=== PATIENT | female | born 1990 | race Two or more races ===

== ENCOUNTER 2017-05-04 20:40 | Emergency (ER) | payer OTHER ==
[~2017-05-04] VITALS: Ht 172.7 cm; Wt 79.4 kg
[2017-05-04 20:45] VITALS: BP 130/85
--- NOTE | 2017-05-04 20:58 | Emergency Room Report ---
History of Present Illness General Chief Complaint: Upper Extremity Injury Source: Patient Present Illness HPI Patient is a 26-year-old female presented after increased left elbow pain. Patient had injury while trying to do a pushup. Patient felt that her elbow popped out of joint. She denies prior history of similar injuries. She is right-hand dominant. The patient reports having prior history of depression. She denies other locations of pain. Allergies: Coded Allergies: No Known Allergies (Unverified , 05/04/17) Patient History Past Medical History: see triage record Last Menstrual Period: 04/06/17 Now: No : 0 Para: 0 Reviewed Nursing Documentation: PMH: Agreed, PSxH: Agreed Nursing Documentation-PMH Past Medical History: No History, Except For History Of Psychiatric Problem: Yes - depression Review of Systems All Other Systems: negative except mentioned in HPI Physical Exam Vital Signs Date Time Temp Pulse Resp B/P (MAP) Pulse Ox O2 Delivery O2 Flow Rate FiO2 05/04/17 20:29 98.8 101 16 130/85 96 Room Air 98.8 Sp02 EP Interpretation: reviewed, normal General Appearance: normal inspection, well appearing, no apparent distress, alert, GCS 15 Head: atraumatic ENT: normal ENT inspection, hearing grossly normal, normal voice Neck: normal inspection, full range of motion, supple, no bony tend Respiratory: normal inspection, lungs clear, normal breath sounds, no respiratory distress, no retraction, no wheezing Cardiovascular #1: regular rate, rhythm, no edema Gastrointestinal: normal inspection, normal bowel sounds, non tender, soft, no guarding, no hernia Genitourinary: no CVA tenderness Musculoskeletal: normal inspection, back normal, other - deformity of left elbow Neurologic: normal inspection, alert, oriented x3, responsive, warp hanger III-XII nml as tested, motor strength/tone normal, speech normal Psychiatric: normal inspection, judgement/insight normal, mood/affect normal Skin: normal inspection, normal color, no rash Procedures Procedural Sedation Consent: Emergent Airway Assessment (Malampati): I Heart: normal Lungs: normal Abdomen: normal Extremities: abnormal - left elbow dislocation Procedures/Plans: Closed Reduction Plan for Moderate Sedation: Propofol ASA Score: I Procedure Narrative The patient was given propofol in 20 mg aliquots until she was adequately sedated. elbow was reduced with axial traction Start Time: 22:24 End Time: 22:36 Communication: No Apparent Limitation Mental Status: Awake Respiration: Unlabored Skin Condition: WNL Abdomen: WNL Nausea: NO Vomiting: NO Medical Decision Making Diagnostic Impression: Primary Impression: Dislocation, elbow ER Course Patient presented for left elbow pain. Differential diagnosis included was not limited to fracture, dislocation, sprain, vascular insufficiency among others. The patient appears to have what appears to be a elbow dislocation.the patient was given IV medications for sedation. Elbow was reduced.Procedure x-ray showed adequate elbow reduction. The patient was placed in a posterior splint and put in a sling. The patient was neurovascularly intact after reduction. The patient is advised to follow up with primary care doctor in 1-2 day for orthopedic primary care referral. Patient is advised to return if any worsening condition or if any changes in status that are concerning. This report is dictated with [employer] department assistant software which may occasionally lead to discrepancies related to use of this software. Last Vital Signs Date Time Temp Pulse Resp B/P (MAP) Pulse Ox O2 Delivery O2 Flow Rate FiO2 05/04/17 20:29 98.8 101 16 130/85 96 Room Air 98.8 Status: improved Disposition: HOME, SELF-CARE Condition: Stable Scripts Ibuprofen* (MOTRIN*) 600 Mg Tablet 600 MG ORAL Q8H Y for For Pain, #30 TAB 0 Refills Prov: Mart James 05/04/17 Hydrocodone Bit/Acetaminophen 5-325* (NORCO 5-325*) 1 Each Tablet 1 TAB ORAL Q6H Y for For Pain, #20 TAB 0 Refills Prov: Mart James 05/04/17 Mart James May 04, 2017 20:58
[2017-05-04] MEDS ORDERED: Ketorolac 30mg Inj IV ONE (21:00)
[2017-05-04] MEDS ORDERED: Propofol 200mg/20ml IV ONE (21:30)
[2017-05-04] MEDS ORDERED: Morphine Sulfate 4mg/ml Inj IVP ONE (22:15)
[2017-05-04] MEDS ORDERED: IBUPROFEN600 MG ORAL (22:37)
[2017-05-04] MEDS ORDERED: NORCO 5-325 TA1 EACH ORAL (22:37)
[2017-05-05] VITALS: BP 128/95
[2017-05-05 00:23] VITALS: BP 113/75
--- NOTE | 2017-05-05 11:17 | Diagnostic Imaging Report ---
Indication: Pain Technique: 2 views of the left elbow Comparison: none Findings: There is posterior dislocation of the elbow, with about one bone width dislocation and override. There is an associated joint effusion. No fracture demonstrated Impression: Positive for left elbow dislocation
--- NOTE | 2017-05-05 11:26 | Diagnostic Imaging Report ---
Indication: Pain, status post reduction of left elbow dislocation Technique: 3 views of the left elbow Comparison: 1 1/2 hours earlier Findings: During reduction of previously demonstrated left elbow dislocation, now satisfactory anatomic alignment. Small ossific density at the lateral aspect of the elbow joint seen on the AP and oblique views may represent a small fracture fragment. The anterior fat-pad is elevated consistent with a joint effusion. Impression: Evidence of successful reduction of previously demonstrated left elbow dislocation Small osseous fragment at the lateral aspect of the joint probably represents a small avulsion fracture
== END 2017-05-05 00:15 | disposition home or self-care (01) ==
LOC: EDBD 20:40 → EMR 23:00
DX: S53.105A Unspecified dislocation of left ulnohumeral joint, initial encounter (principal); F32.9 Major depressive disorder, single episode, unspecified; X58.XXXA Exposure to other specified factors, initial encounter; Y93.B2 Activity, push-ups, pull-ups, sit-ups; Y92.9 Unspecified place or not applicable
CPT/HCPCS: 73070; 73080; 96374; 96375; 99284; J1885; J2270; J2704